=== PATIENT | female | born 1965 | race Caucasian/White ===

== ENCOUNTER 2022-01-19 07:26 | Outpatient (CLI) | payer BC | END 2022-01-19 07:27 | disposition home or self-care (01) | LOC: CSHULT 07:26 | PROVIDERS: ATTEND Family Medicine | DX: R10.9 Unspecified abdominal pain (principal) | CPT/HCPCS: 76700 ==

== ENCOUNTER 2023-05-06 09:34 | Outpatient (CLI) | payer BC | END 2023-05-06 09:35 | disposition home or self-care (01) | LOC: CSHULT 09:34 | PROVIDERS: ATTEND Family Medicine | DX: R10.11 Right upper quadrant pain (principal); K76.0 Fatty (change of) liver, not elsewhere classified | CPT/HCPCS: 76705 ==

== ENCOUNTER 2023-07-14 04:25 | Emergency (ER) | payer BC ==
[2023-07-14] MEDS ORDERED: EPINEPHrine 1 MG/ML VIAL ONE (05:12)
[2023-07-14] MEDS ORDERED: methylPREDNISolone Sod Succ/PF 125 MG/2 ML VIAL ONE (05:12)
[2023-07-14] MEDS ORDERED: Famotidine/PF 20 mg/2ml Vial ONE (05:13)
[2023-07-14] MEDS ORDERED: diphenhydrAMINE 50 MG/ML VIAL ONE (05:13)
== END 2023-07-14 10:00 | disposition home or self-care (01) ==
LOC: CSHERS 04:25
DX: T78.3XXA Angioneurotic edema, initial encounter (principal)
CPT/HCPCS: 96361; 96372; 96374; 96375; J0171; J1200; J2930; S0028

== ENCOUNTER 2023-11-13 13:11 | Emergency (ER) | payer BC ==
[2023-11-13] MEDS ORDERED: Lidocaine 1% (PF) 30 ML VIAL ONE (13:28)
[2023-11-13] MEDS ORDERED: Boostrix 0.5 ML (Tdap) VIAL (>/=7 yrs of age) ONE (13:30)
== END 2023-11-13 15:00 | disposition home or self-care (01) ==
LOC: CSHERS 13:11
DX: S61.212A Laceration without foreign body of right middle finger without damage to nail, initial encounter (principal); Z55.6 Problems related to health literacy; Z23 Encounter for immunization; I73.00 Raynaud's syndrome without gangrene; W26.8XXA Contact with other sharp object(s), not elsewhere classified, initial encounter; Y93.E5 Activity, floor mopping and cleaning
CPT/HCPCS: 12002; 90471; 90715; J2001

== ENCOUNTER 2024-08-18 09:35 | Outpatient (CLI) | payer BC | END 2024-08-18 09:36 | disposition home or self-care (01) | LOC: CSHMAMMO 09:35 | PROVIDERS: ATTEND Student in an Organized Health Care Education/Training Program | DX: Z12.31 Encounter for screening mammogram for malignant neoplasm of breast (principal); M25.561 Pain in right knee; N63.25 Unspecified lump in the left breast, overlapping quadrants; M71.21 Synovial cyst of popliteal space [Baker], right knee | CPT/HCPCS: 76882; 77063; 77067 ==

== ENCOUNTER 2024-09-08 13:37 | Outpatient (CLI) | payer BC | END 2024-09-08 13:38 | disposition home or self-care (01) | LOC: CSHMAMMO 13:37 | PROVIDERS: ATTEND Student in an Organized Health Care Education/Training Program | DX: N63.20 Unspecified lump in the left breast, unspecified quadrant (principal) | CPT/HCPCS: G0279 ==

== ENCOUNTER → 2024-09-12 | Day surgery (SDC) | payer BC | LOC: CSHULT 12:17 | PROVIDERS: ATTEND Student in an Organized Health Care Education/Training Program | PROC: 0HBU3ZX Excision of Left Breast, Percutaneous Approach, Diagnostic (ICD-10-PCS; principal; 2024-09-12) | DX: N63.25 Unspecified lump in the left breast, overlapping quadrants (principal) | CPT/HCPCS: 19083; 88305 ==